=== PATIENT | female | born 1955 | race Caucasian/White ===

== ENCOUNTER 2016-09-23 20:06 | Observation (INO) | payer OTHER ==
[~2016-09-23] VITALS: Ht 157.5 cm; Wt 70.0 kg
[2016-09-23 20:08] VITALS: BP 211/95; TEMP 97.6; O2SAT 95
[2016-09-23 20:09] VITALS: BP 211/95; PULSE 60; RESP 16; TEMP 97.6; O2SAT 95
[2016-09-23] MEDS ORDERED: ASPIRIN 81 MG CHEW TAB PO ONE (20:30)
[2016-09-23] MEDS ORDERED: NITROGLYCERIN 2% OINT 1 GM PACKET TOP ONE (20:30)
[2016-09-23] MEDS: NITROGLYCERIN 0.4 MG SL 25 TABS/BTL SL SCH ×3 (20:35→21:04)
--- NOTE | 2016-09-23 20:43 | RADRPT ---
EXAM DATE/TIME: 09/23/2016 20:24 [place] COMPARISON: No previous studies available for comparison. INDICATIONS : Palpitations MEDICAL HISTORY : Hypertension. SURGICAL HISTORY : None. ENCOUNTER: Initial ACUITY: 4 - 6 days PAIN SCORE: 0/10 LOCATION: Bilateral chest FINDINGS: A single view of the chest demonstrates the lungs to be symmetrically aerated without evidence of mas s, infiltrate or effusion. The cardiomediastinal contours are unremarkable. Osseous structures are intact. CONCLUSION: No evidence of acute cardiopulmonary disease. Robles Flores MD on September 23, 2016 at 20:41 Board Certified Radiologist. This report was verified electronically.
[2016-09-23 21:00] VITALS: BP 142/72; PULSE 65; RESP 16; O2SAT 96
--- NOTE | 2016-09-23 21:03 | PD ---
HPI Chief Complaint: Cardiac Complaint Time Seen by Provider: 20:20 Travel History International Travel<30 days: No Contact w/Intl Traveler<30days: No Traveled to known affect area: No History of Present Illness HPI The patient is a 61 year old female who presents to the [facility] emergency department with a history of chest pain and palpitations that she reports is been coming and going for the last 2 weeks. She reports that the symptoms are getting worse with time. She reports that eating makes palpitations worse. She reports that exercising at the gym makes the palpitations worse. She denies any worsening acid reflux or heartburn. She does report taking omeprazole as needed for this. She denies having any shortness of breath associated with this. The patient reports that she followed up with her primary care physician and was noted to have high blood pressure that was not well controlled on her metoprolol. She was referred to her splicer helper whom she sees for atrial fibrillation. Holter monitor was ordered and a stress test, however they have not been done yet. The patient went to a [facility] for evaluation of her continued chest pressure and palpitations in her blood work and chest x-ray were reportedly unremarkable. She has not had a stress test done for the last 3 years. She denies any prior history of coronary artery disease. The patient denies any recent fevers, cough, congestion, neck pain, abdominal pain, vomiting, diarrhea, urinary symptoms, or neurologic symptoms. The patient last moved her bowels yesterday. [facility] Past Medical History Narrative Medical The patient's past medical history is significant for atrial fibrillation, hyperlipidemia, acid reflux, insomnia, hypertension Hx Anticoagulant Therapy: Yes (ASA) Cardiovascular Problems: Yes (HTN) Past Surgical History Narrative Surgical The patient's past surgical history is significant for a cholecystectomy, low back surgery. Social History Alcohol Use: No Tobacco Use: No Substance Use: No Allergies-Medications (Allergen,Severity, Reaction): Coded Allergies: Penicillin (Verified Allergy, Mild, RASH, 09/23/16) Reported Meds & Prescriptions Reported Meds & Active Scripts Active Narrative Medication Simvastatin, Propaferone, metoprolol, omeprazole PRN, baby aspirin, Ambien when necessary Review of Systems Except as stated in HPI: all other systems reviewed are Neg General / Constitutional: No: Fever Eyes: No: Visual changes HENT: No: Headaches, Rhinorrhea, Congestion Cardiovascular: Positive: Chest Pain or Discomfort, Palpitations, Tachycardia, No: Diaphoresis, Dyspnea on exertion Respiratory: No: Shortness of Breath Gastrointestinal: No: Nausea, Vomiting, Diarrhea, Abdominal Pain, Changes in Bowel Habits, Indigestion, Loss of Appetite Genitourinary: No: Dysuria Musculoskeletal: No: Pain Skin: No Rash Neurologic: No: Weakness, Focal Abnormalities, Change in Mentation, Slurred Speech, Sensory Disturbance Psychiatric: No: Depression Endocrine: No: Polydipsia Hematologic/Lymphatic: No: Easy Bruising Physical Exam Narrative General: The patient is a well-developed well-nourished female in no acute distress. Head and Neck exam: Head is normocephalic atraumatic. Eyes: Pupils are equal round and reactive to light. Nose: Midline septum with pink mucous membranes Mouth: Dentition unremarkable. Moist mucus membranes. Posterior oropharynx is not erythematous. No tonsillar hypertrophy. Uvula midline. Airway patent. Neck: No palpable lymphadenopathy. No nuchal rigidity. No thyromegaly. Cardiovascular: Regular rate and rhythm without murmurs, gallops, or rubs. No pulse deficit to the extremities on simultaneous auscultation and palpation of her radial artery. Lungs: Clear to auscultation bilaterally. No wheezes, rhonchi, or rales. Abdomen: Soft, without tenderness to palpation in all 4 quadrants of the abdomen. No guarding, rebound, or rigidity. Normal bowel sounds are audible. Extremities: No clubbing, cyanosis, or edema. 2+ pulses in all 4 extremities. Back: No spinous process tenderness to palpation. No costovertebral angle tenderness to palpation. Neurologic Exam: Grossly nonfocal. Skin Exam: No rash noted. Intact skin that is warm and dry. Data Data Last Documented VS Vital Signs Date Time Temp Pulse Resp B/P Pulse Ox O2 Delivery O2 Flow Rate FiO2 09/23/16 22:00 61 16 124/69 96 Room Air 09/23/16 20:09 97.6 Orders Electrocardiogram (09/23/16 20:20) Complete Blood Count With Diff (09/23/16 20:20) Comprehensive Metabolic Panel (09/23/16 20:20) Creatine Kinase (Cpk) (09/23/16 20:20) Ckmb (Isoenzyme) Profile (09/23/16 20:20) Troponin I (09/23/16 20:20) B-Type Natriuretic Peptide (09/23/16 20:20) Prothrombin Time / Inr (Pt) (09/23/16 20:20) Act Partial Throm Time (Ptt) (09/23/16 20:20) Lipase (09/23/16 20:20) Urinalysis - C+S If Indicated (09/23/16 20:20) D-Dimer (09/23/16 20:20) Magnesium (Mg) (09/23/16 20:20) Thyroid Stimulating Hormone (09/23/16 20:20) Chest, Single Ap (09/23/16 20:20) Iv Access Insert/Monitor (09/23/16 20:20) Ecg Monitoring (09/23/16 20:20) Oximetry (09/23/16 20:20) Drug Screen, Random Urine (09/23/16 20:20) Aspirin Chew (Aspirin Chew) (09/23/16 20:30) Nitroglycerin 2% Oint (Nitroglycerin 2% (09/23/16 20:30) Nitroglycerin Sl (Nitrostat Sl) (09/23/16 20:30) Admit Order (Ed Use Only) (09/23/16 22:45) Labs Laboratory Tests Test 09/23/16 09/23/16 20:50 20:55 White Blood Count 8.8 TH/MM3 Red Blood Count 4.92 MIL/MM3 Hemoglobin 13.6 GM/DL Hematocrit 39.9 % Mean Corpuscular Volume 81.3 FL Mean Corpuscular Hemoglobin 27.6 PG Mean Corpuscular Hemoglobin 34.0 % Concent Red Cell Distribution Width 12.9 % Platelet Count 355 TH/MM3 Mean Platelet Volume 8.6 FL Neutrophils (%) (Auto) 47.3 % Lymphocytes (%) (Auto) 41.0 % Monocytes (%) (Auto) 7.9 % Eosinophils (%) (Auto) 2.6 % Basophils (%) (Auto) 1.2 % Neutrophils # (Auto) 4.1 TH/MM3 Lymphocytes # (Auto) 3.6 TH/MM3 Monocytes # (Auto) 0.7 TH/MM3 Eosinophils # (Auto) 0.2 TH/MM3 Basophils # (Auto) 0.1 TH/MM3 CBC Comment DIFF FINAL Differential Comment Prothrombin Time 10.4 SEC Prothromb Time International 0.9 RATIO Ratio Activated Partial 25.4 SEC Thromboplast Time D-Dimer Quantitative (PE/DVT) 0.28 MG/L FEU Sodium Level 137 MEQ/L Potassium Level 3.6 MEQ/L Chloride Level 102 MEQ/L Carbon Dioxide Level 27.7 MEQ/L Anion Gap 7 MEQ/L Blood Urea Nitrogen 17 MG/DL Creatinine 0.85 MG/DL Estimat Glomerular Filtration 68 ML/MIN Rate Random Glucose 81 MG/DL Calcium Level 9.1 MG/DL Magnesium Level 2.3 MG/DL Total Bilirubin 0.3 MG/DL Aspartate Amino Transf 16 U/L (AST/SGOT) Alanine Aminotransferase 17 U/L (ALT/SGPT) Alkaline Phosphatase 101 U/L Total Creatine Kinase 67 U/L Troponin I 0.03 NG/ML B-Type Natriuretic Peptide 39 PG/ML Total Protein 7.6 GM/DL Albumin 3.9 GM/DL Lipase 170 U/L Thyroid Stimulating Hormone 2.300 uIU/ML 3rd Gen Urine Color LIGHT-YELLOW Urine Turbidity CLEAR Urine pH 6.0 Urine Specific [place] 1.008 Urine Protein NEG mg/dL Urine Glucose (UA) NEG mg/dL Urine Ketones TRACE mg/dL Urine Occult Blood TRACE Urine Nitrite NEG Urine Bilirubin NEG Urine Urobilinogen LESS THAN 2.0 MG/DL Urine Leukocyte Esterase MOD Urine RBC 1 /hpf Urine WBC 5 /hpf Urine Squamous Epithelial 1 /hpf Cells Urine Bacteria RARE /hpf Microscopic Urinalysis Comment CULT NOT INDICATED Urine Opiates Screen NEG Urine Barbiturates Screen NEG Urine Amphetamines Screen NEG Urine Benzodiazepines Screen NEG Urine Cocaine Screen NEG Urine Cannabinoids Screen NEG MDM Medical Decision Making Medical Screen Exam Complete: Yes Emergency Medical Condition: Yes Medical Record Reviewed: Yes Interpretation(s) Vital Signs Date Time Temp Pulse Resp B/P Pulse Ox O2 Delivery O2 Flow Rate FiO2 09/23/16 22:00 61 16 124/69 96 Room Air 09/23/16 21:00 65 16 142/72 96 Room Air 09/23/16 20:09 97.6 60 16 211/95 95 Room Air Last Impressions Chest X-Ray 09/23/162019 Signed Impressions: Service Date/Time: Friday, September 23, 2016 20:24 - CONCLUSION: No evidence of acute cardiopulmonary disease. Robles Flores MD Differential Diagnosis Acute coronary syndrome, versus paroxysmal atrial fibrillation, versus premature atrial contractions, versus PVCs, versus pulmonary embolism, versus electrolyte abnormality Narrative Course During the course of the patients emergency department visit, the patients history, examination, and differential diagnosis were reviewed with the patient. The patient had IV access obtained and blood work sent for analysis. The patient was placed on a quality assurance monitor final with oximetry and blood pressure monitoring. An EKG was done on arrival. The patient's EKG reveals a sinus bradycardia, heart rate of 56, minimal voltage criteria for LVH. No acute ST segment elevation or depression. T waves are inverted in lead 3. The patient was provided aspirin 162 mg by mouth 1, nitroglycerin sublingual 1 , nitroglycerin 1 inch the chest wall. The patients laboratory studies were reviewed and remarkable for a CBC that is within normal limits, CMP is unremarkable, initial set of cardiac enzymes are negative, BNP is 39, TSH 2.3, lipase 170, d-dimer is 0.2 a decrease in the likelihood of pulmonary embolism in this patient with no other significant risk factors. PT PTT unremarkable. Urine drug screen is negative, urinalysis shows trace ketones, trace blood, moderate leukocyte esterase, 1 rbc, 5 WBC, rare bacteria, culture not indicated. Radiology studies were reviewed and remarkable for a chest x-ray that showed no acute abnormality. The patients results were discussed with the patient, including the plan of care. I explained that further testing and/ or monitoring is indicated based on the patients history, examination, and/ or laboratory findings. Therefore, I recommended admission for additional evaluation. The patient expressed understanding and was agreeable with this plan. The patient was admitted to the hospital in stable condition and sent to a bed under the care of the chest pain center. Diagnosis Primary Impression: Chest pain, rule out acute myocardial infarction Additional Impression: Palpitations Admitting Information Admitting Physician Requests: Angely Zayas MD Sep 23, 2016 21:03
[2016-09-23 22:00] VITALS: BP 124/69; PULSE 61; RESP 16; O2SAT 96
[2016-09-23 22:09] LABS: AUTOMATED NEUTROPHIL # 4.1 TH/MM3 (1.8-7.7); BASOPHIL # 0.1 TH/MM3 (0-0.2); BASOPHIL % 1.2 % (0.0-2.0); EOSINOPHIL # 0.2 TH/MM3 (0-0.4); EOSINOPHIL % 2.6 % (0.0-4.0); HEMATOCRIT 39.9 % (35.0-46.0); HEMO FLAGS DIFF FINAL; LYMPHOCYTE # 3.6 TH/MM3 (1.0-4.8); MEAN CELL VOLUME 81.3 FL (80.0-100.0); MEAN CORPUSCULAR HEMOGLOBIN 27.6 PG (27.0-34.0); MONO % 7.9 % (0.0-8.0); NEUT % 47.3 % (16.0-70.0); PLATELET COUNT 355 TH/MM3 (150-450); RED BLOOD COUNT 4.92 MIL/MM3 (4.00-5.30); RED CELL DISTRIBUTION WIDTH 12.9 % (11.6-17.2); WHITE BLOOD COUNT 8.8 TH/MM3 (4.0-11.0)
[2016-09-23 22:17] LABS: AMPHETAMINE, URINE NEG (NEG); BARBITURATES, URINE NEG (NEG); COCAINE, URINE NEG (NEG)
[2016-09-23 22:25] LABS: ANION GAP 7 MEQ/L (5-15); AST (GOT) 16 U/L (15-37); BICARBONATE 27.7 MEQ/L (21.0-32.0); BLOOD UREA NITROGEN 17 MG/DL (7-18); CHLORIDE 102 MEQ/L (98-107); GLOMERULAR FILTRATION RATE 68 ML/MIN (>89); MAGNESIUM 2.3 MG/DL (1.5-2.5); POTASSIUM 3.6 MEQ/L (3.5-5.1); SODIUM (NA) 137 MEQ/L (136-145)
[2016-09-23 22:29] LABS: BACTERIA, URINE RARE /hpf; BLOOD, URINE TRACE (NEG); COMMENT (UR) CULT NOT INDICATED; CULTURE IF INDICATED CULT NOT INDICATED; GLUCOSE,URINE NEG (NEG); KETONE, URINE TRACE mg/dL (NEG); NITRITE,URINE NEG (NEG); SQUAMOUS EPITHELIAL CELL URINE 1 /hpf (0-5); URINE COLOR LIGHT-YELLOW (YELLW/STRAW)
[2016-09-23 22:30] LABS: APTT (PATIENT) 25.4 SEC (24.3-30.1); INTERNATIONAL NORMALIZED RATIO 0.9 RATIO; PROTHROMBIN TIME - PATIENT 10.4 SEC (9.8-11.6)
[2016-09-23 22:34] LABS: ALKALINE PHOSPHATASE 101 U/L (45-117); ALT (GPT) 17 U/L (10-53); TOTAL BILIRUBIN ADULT 0.3 MG/DL (0.2-1.0)
[2016-09-23 22:38] LABS: CREATINE KINASE 67 U/L (26-192)
[2016-09-23] MEDS ORDERED: ACETAMINOPHEN 500 MG CPLT PO PRN (23:00)
[2016-09-23] MEDS ORDERED: ONDANSETRON HCL 4 MG/2 ML VIAL IV PRN (23:00)
[2016-09-23] MEDS ORDERED: SODIUM CHLORIDE 0.9% FLUSH 5 ML FLUSH IVF PRN (23:00)
[2016-09-23] MEDS: NITROGLYCERIN 2% OINT 1 GM PACKET TOP SCH (23:54)
[2016-09-23 23:56] VITALS: BP 126/71; PULSE 69; RESP 16; O2SAT 97
[2016-09-24] VITALS (8 sets, daily range): BP systolic 101–112; BP diastolic 57–60; PULSE 54–61; RESP 18–22; TEMP 97.9–98.2; O2SAT 96–97
[2016-09-24] MEDS ORDERED: PROP150T PO (00:08)
[2016-09-24] MEDS ORDERED: OMEP20TA PO (00:08)
[2016-09-24] MEDS ORDERED: SIMV20TA PO (00:08)
[2016-09-24] MEDS ORDERED: ASPI81CH PO (00:08)
[2016-09-24] MEDS ORDERED: METO50TA PO (00:08)
[2016-09-24] MEDS ORDERED: ZOLP10TA3 PO (00:08)
[2016-09-24] MEDS: NITROGLYCERIN 2% OINT 1 GM PACKET TOP SCH ×2 (05:36→11:34)
[2016-09-24] MEDS ORDERED: SODIUM CHLORIDE 0.9% FLUSH 5 ML FLUSH IVF SCH (09:00)
[2016-09-24] MEDS ORDERED: ASPIRIN 325 MG TAB PO SCH (09:00)
--- NOTE | 2016-09-24 09:03 | HHI.HP ---
[facility] Primary Care Physician Dr. Judy Wilson Chief Complaint Chest pressure and palpitations History of Present Illness 61-year-old patient with 2 weeks of chest pressure and palpitations every evening around 10 PM. Reports elevated blood pressure systolic in the 180s to 190s with diastolic in low 100s during chest pressure/palpation episodes. Chest pressure occurs with palpitations located in the middle of her chest described as "pounding." No radiation of chest pressure. Duration last throughout evening for past 2 weeks, does not happen during the day or with exertion. No associated symptoms. No precipitating or relieving factors. Called her foam tank laminator regarding above. She is scheduled for a Holter monitor 09/30 and a stress test 10/02. Review of Systems General: Chills approximately 7:30 last evening. No fatigue, weakness, fever, recent travel, or recent illness change in appetite HEENT: No HOLMAN, no vision changes, no nasal congestion or drainage, no dysphasia CV: Chest pressure and palpitations as stated above. No current chest discomfort/palpitations. No Intermittent leg pain or dizziness RESP: No SOB, cough, wheeze, or recent URI GI: No nausea, vomiting, bowel changes, diarrhea, constipation, pain, distention , melena, blood in the stool. : No dysuria, urgency, frequency EXT: No lower leg edema MS: No discomfort or change in ROM NEURO: No change in memory, dizziness, difficulty with balance, LOC, motor/ sensory deficits PSYCH: No anxiety or depression SKIN: No rashes, no concerning lesions. Left shoulder bruise she noticed yesterday cannot remember hitting area. Past Family Social History Allergies: Coded Allergies: Penicillin (Verified Allergy, Mild, RASH, 09/23/16) Past Medical History Hypertension A. fib Hyperlipidemiaborderline GERD Insomnia (recently diagnosed, given prescription Ambien 2 weeks ago if she is unable to sleep D/T chest pressure and palpitations) Past Surgical History Cholecystectomy Low back artery Reported Medications Active Reported Zolpidem (Zolpidem Tartrate) 10 Mg Tab 10 Mg PO HS PRN Aspirin 81 Mg Chew 81 Mg PO DAILY Omeprazole 20 Mg Tab 20 Mg PO DAILY Metoprolol Tartrate 50 Mg Tab 50 Mg PO DAILY Propafenone (Propafenone HCl) 150 Mg Tab 150 Mg PO DAILY Simvastatin 20 Mg Tab 20 Mg PO DAILY Active Ordered Medications Current Medications Medications (Trade) Dose Ordered Sig/Julián Route Start Time Stop Time Status Last Admin (Tylenol) 500 mg Q4H PRN PO 09/23/16 23:00 09/24/16 00:41 (Zofran Inj) 4 mg Q6H PRN IV 09/23/16 23:00 (Nitroglycerin 2% Oint) 1 inch Q6HR TOP 09/24/16 00:00 (Aspirin) 325 mg DAILY PO 09/24/16 09:00 09/24/16 08:28 Family History Noncontributory for early onset cardiac vascular disease Social History She is a lifelong nonsmoker, denies alcohol or illegal drug use. She is a . Denies diabetes. Reports hypertension and borderline hyperlipidemia. She is active walking daily and going to the gym regularly. Past cardiac testing Follows with a foam tank laminator in [facility]. Treadmill stress test 3 years ago which was unremarkable. Scheduled for Holter monitor 09/30 and stress test 10/02. In the past, she wore Holter monitor for palpitations however no arrhythmias were identified. Physical Exam Vital Signs Vital Signs Date Time Temp Pulse Resp B/P Pulse Ox O2 Delivery O2 Flow Rate FiO2 09/24/16 08:02 56 09/24/16 07:24 96 21 09/24/16 05:38 98.2 61 18 101/57 97 09/24/16 02:07 58 09/24/16 02:06 58 09/24/16 01:53 16 09/24/16 00:36 97.9 54 18 108/58 97 09/24/16 00:13 97 09/23/16 23:56 69 16 126/71 97 Room Air 09/23/16 22:00 61 16 124/69 96 Room Air 09/23/16 21:00 65 16 142/72 96 Room Air 09/23/16 20:09 97.6 60 16 211/95 95 Room Air Physical Exam GENERAL: Alert WN, WD, NAD, pleasant, female HEAD: NC, AT EYES: Sclera clear, conjunctiva without injection, pupils equal and round ENT: Mucous membranes pink and moist NECK: Supple, no masses, trachea midline CV: RRR, without murmur, rub, gallop, no JVD, S1-S2 no S3-S4. No carotid bruits RESP: Clear lungs throughout bilateral, no crackles, wheeze, rhonchi, symmetrical chest rise, nonlabored, able to speak in full sentences ABD: Soft, NT, ND, no masses, positive bowel tones EXT: Pulses +24, no dependent edema MS: Normal tone 4 extremities, nontender, no obvious deformities, full range of motion NEURO: CN II through CN XII grossly intact, motor strength 5/5, gait WNL PSYCH: A+O 3, pleasant affect, appropriate speech, appropriate mood and affect , insight and judgment SKIN: Normal turgor, normal texture, no lesions, no rashes. Bruise on left shoulder. Laboratory Laboratory Tests Test 09/23/16 09/23/16 09/24/16 09/24/16 20:50 20:55 00:00 02:25 White Blood Count 8.8 Red Blood Count 4.92 Hemoglobin 13.6 Hematocrit 39.9 Mean Corpuscular Volume 81.3 Mean Corpuscular Hemoglobin 27.6 Mean Corpuscular Hemoglobin 34.0 Concent Red Cell Distribution Width 12.9 Platelet Count 355 Mean Platelet Volume 8.6 Neutrophils (%) (Auto) 47.3 Lymphocytes (%) (Auto) 41.0 Monocytes (%) (Auto) 7.9 Eosinophils (%) (Auto) 2.6 Basophils (%) (Auto) 1.2 Neutrophils # (Auto) 4.1 Lymphocytes # (Auto) 3.6 Monocytes # (Auto) 0.7 Eosinophils # (Auto) 0.2 Basophils # (Auto) 0.1 CBC Comment DIFF FINAL Differential Comment Prothrombin Time 10.4 Prothromb Time International 0.9 Ratio Activated Partial 25.4 Thromboplast Time D-Dimer Quantitative (PE/DVT) 0.28 Sodium Level 137 Potassium Level 3.6 Chloride Level 102 Carbon Dioxide Level 27.7 Anion Gap 7 Blood Urea Nitrogen 17 Creatinine 0.85 Estimat Glomerular Filtration 68 Rate Random Glucose 81 Calcium Level 9.1 Magnesium Level 2.3 Total Bilirubin 0.3 Aspartate Amino Transf 16 (AST/SGOT) Alanine Aminotransferase 17 (ALT/SGPT) Alkaline Phosphatase 101 Total Creatine Kinase 67 52 50 Troponin I 0.03 0.03 0.03 B-Type Natriuretic Peptide 39 Total Protein 7.6 Albumin 3.9 Lipase 170 Thyroid Stimulating Hormone 2.300 3rd Gen Urine Color LIGHT-YELLOW Urine Turbidity CLEAR Urine pH 6.0 Urine Specific [place] 1.008 Urine Protein NEG Urine Glucose (UA) NEG Urine Ketones TRACE Urine Occult Blood TRACE Urine Nitrite NEG Urine Bilirubin NEG Urine Urobilinogen LESS THAN 2.0 Urine Leukocyte Esterase MOD Urine RBC 1 Urine WBC 5 Urine Squamous Epithelial 1 Cells Urine Bacteria RARE Microscopic Urinalysis Comment CULT NOT INDICATED Urine Opiates Screen NEG Urine Barbiturates Screen NEG Urine Amphetamines Screen NEG Urine Benzodiazepines Screen NEG Urine Cocaine Screen NEG Urine Cannabinoids Screen NEG Result Diagram: 09/23/[id number] Imaging Last Impressions Chest X-Ray 09/23/162019 Signed Impressions: Service Date/Time: Friday, September 23, 2016 20:24 - CONCLUSION: No evidence of acute cardiopulmonary disease. Robles Flores MD Course EKGs 3 EKGs show normal sinus rhythm, no ST segment changes Assessment and Plan Assessment and Plan #1 chest painadmitted to the chest pain center. Ruled out with 3 sets of EKGs , cardiac enzymes, and monitor throughout evening. Seen and evaluated by Dr. Galvan. Discussed with patient next step would include and exercise stress test. Encouraged to keep appointment for Holter monitor 09/30. Naturally , if exercise stress test work she will be these discharge later this afternoon. #2 hypertensioninitially patient was hypertensive in ER. Has been normotensive throughout evening. Will continue to monitor. Reorder her routine BP meds. #3 palpitationskeep appointment for halter monitor 09/30. No evidence of A. fib on monitor or EKGs. Continue Rythmol as previously ordered. #4 hyperlipidemiacontinue simvastatin #5 GERDcontinue omeprazole Code Status Full code KevinlucyMarla JANE Sep 24, 2016 09:03
[2016-09-24] MEDS ORDERED: PANTOPRAZOLE SOD 20 MG DELAYED RELEASE TAB PO SCH (09:15)
--- NOTE | 2016-09-24 11:31 | HHI.DCPOC ---
Discharge Care Plan Diagnosis: (1) Atypical chest pain (2) Palpitations Goals to Promote Your Health * To prevent worsening of your condition and complications * To maintain your health at the optimal level Directions to Meet Your Goals Take your medications as prescribed Follow your dietary instruction Follow activity as directed Keep your appointments as scheduled Take your immunizations and boosters as scheduled If your symptoms worsen call your PCP, if no PCP go to Urgent Care Center or Emergency Room Smoking is Dangerous to Your Health. Avoid second hand smoke Call the 24-hour hour crisis hotline for domestic abuse at Marla Dominguez Sep 24, 2016 11:31
--- NOTE | 2016-09-24 12:38 | TR ---
Date Performed: 09/24/2016 Time Performed: 10:23:27 DOCTOR: Avril Galvan DRUG LIST: CLINICAL HISTORY: REASON FOR TEST: REASON FOR ENDING: OBSERVATION: CONCLUSION: Moises protocol completed. Stopped sec to reaching target heart rate and leg fatigue. Maximum BU=922 Target HR Achieved=86.0% Maximum IY=694/62 Total Exercise Time=7:01. No reprod chest discomfort. Rare PVC. Upsloping j point depression inferior leads. Good exercise tolerance. Normal bp response. Recovery quick and unremarkable. COMMENTS:
--- NOTE | 2016-09-24 12:40 | EKG ---
Date Performed: 09/23/2016 Time Performed: 20:26:14 PTAGE: 61 years EKG: SINUS BRADYCARDIA MINIMAL VOLTAGE CRITERIA FOR LVH, CONSIDER NORMAL VARIANT BORDERLINE ECG NO PREVIOUS TRACING DOCTOR: Avril Galvan Interpretating Date/Time 09/24/2016 12:40:01
--- NOTE | 2016-09-24 12:41 | EKG ---
Date Performed: 09/23/2016 Time Performed: 23:47:09 PTAGE: 61 years EKG: Sinus rhythm MODERATE VOLTAGE CRITERIA FOR LVH, CONSIDER NORMAL VARIANT BORDERLINE ECG Since PREVIOUS TRACING , no significant change noted PREVIOUS TRACIN09/23/2016 20.26 DOCTOR: Avril Galvan Interpretating Date/Time 09/24/2016 12:40:48
--- NOTE | 2016-09-24 12:41 | EKG ---
Date Performed: 09/24/2016 Time Performed: 03:46:12 PTAGE: 61 years EKG: Sinus rhythm NORMAL ECG Since PREVIOUS TRACING , no significant change noted PREVIOUS TRACIN09/23/2016 23.47 DOCTOR: Avril Galvan Interpretating Date/Time 09/24/2016 12:40:38
[2016-09-24] MEDS ORDERED: PRAVASTATIN SOD 40 MG TAB PO SCH (21:00)
[2016-09-25] MEDS ORDERED: PROPAFENONE HCL 150 MG TAB PO SCH (09:00)
[2016-09-25] MEDS ORDERED: METOPROLOL TARTRATE 50 MG TAB PO SCH (09:00)
== END 2016-09-24 17:50 | disposition home or self-care (01) ==
LOC: NEPC 20:06 → NEDA 22:47 → NEPGCP 09-24 00:17
PROVIDERS: ADMIT Internal Medicine Cardiovascular Disease; ATTEND Internal Medicine Cardiovascular Disease
DX: R07.9 Chest pain, unspecified (principal); R00.2 Palpitations; I10 Essential (primary) hypertension; I48.91 Unspecified atrial fibrillation; K21.9 Gastro-esophageal reflux disease without esophagitis; E78.5 Hyperlipidemia, unspecified; G47.00 Insomnia, unspecified; Z79.01 Long term (current) use of anticoagulants; R00.1 Bradycardia, unspecified; Z79.899 Other long term (current) drug therapy
CPT/HCPCS: 71010; 80053; 80307; 81001; 82550; 83690; 83735; 83880; 84443; 84484; 85025; 85379; 85610; 85730; 93005; 93017; 99285; G0378